=== PATIENT | female | born 1965 | race Caucasian/White ===

== ENCOUNTER 2021-02-15 09:16 | Outpatient (CLI) | payer OTHER, SELFPAY ==
--- NOTE | 2021-02-15 13:15 | DI.RAD_ITS ---
Exam(s) XR ELBOW LT COMPLETE EXAM: XR ELBOW LT COMPLETE CLINICAL HISTORY: Contusion of lt elbow s/p fall, S50.02XA, [id number], r/o fx. TECHNIQUE: 2D digital imaging was performed. COMPARISON: No exams were available for comparison FINDINGS: BONES: No acute fracture is present. No bony destructive lesion is seen. JOINTS: The elbow is normally aligned. No joint effusion is seen. SOFT TISSUE: Soft tissue swelling near the medial epicondyle. Small density projects within the sof t tissues, consistent with a foreign body. IMPRESSION: No evidence of fracture. Soft tissue swelling and medial soft tissue foreign body. DATA REPOSITORY: RADIATION DOSE DELIVERED:
== END 2021-02-15 09:36 ==
LOC: DI 02-16 09:18
PROVIDERS: Visit Provider Nurse Practitioner
DX: S50.02XA Contusion of left elbow, initial encounter (principal); M79.5 Residual foreign body in soft tissue; W19.XXXA Unspecified fall, initial encounter
CPT/HCPCS: 73080